=== PATIENT | female | born 1985 | race Caucasian/White ===

== ENCOUNTER 2020-01-13 06:56 | Inpatient (IN) | payer OTHER, SELFPAY ==
[2020-01-13] VITALS (80 sets, daily range): BP systolic 93–161; BP diastolic 54–97; PULSE 68–129; RESP 16; TEMP 36.4–37.3; O2SAT 93–100; BMI 24.7
[2020-01-13] MEDS: Lactated Ringers 1,000 ML 50 ML IV (07:25)
[2020-01-13 07:40] LABS: Absolute Lymphocyte Count 1.26 X10^3/uL (0.83-4.51); Absolute Neutrophil Count 4.9 X10^3/uL (2.0-7.7); Basophil# 0.06 X10^3/uL; Basophil% 0.9 % (0-1); Eosinophil# 0.08 X10^3/uL; Eosinophils% 1.2 % (0-5); Hematocrit 37.3 % (37-47); Lymphocyte # 1.26 X10^3/ul (4.0); Lymphocyte % 18.7 % (19-41); Mean Corp Hgb Conc 32.2 g/dL (32-36); Mean Corpuscular Hgb 27.6 pg (27.0-32.0); Mean Corpuscular Volume 85.9 fL (81-99); Mean Platelet Vol. 11.8 fl (6.2-12.0); Monocyte# 0.43 X10^3/uL; Monocyte% 6.4 % (0-10); NRBC Flagged by Analyzer 0 % (0-5); Neutrophil # 4.87 X10^3/uL (2.7-7.7); Neutrophil % 72.4 % (47-70); Platelet Count 190 K/mm3 (150-450); RBC Distribution Width CV 14.9 % (11.6-14.6); RBC Distribution Width SD 46.6 fl (35.1-43.9); Red Blood Count 4.34 M/mm3 (4.2-5.4); White Blood Count 6.7 K/mm3 (4.4-11.0)
[2020-01-13] MEDS: Oxytocin 30 units/NS 500 ml 30 UNITS/500 ML IV.SOLN IV (08:09)
[2020-01-13 11:00] LABS: Chlamydia Trachomatis by PCR Negative (Negative); Neisserai gonorrhoeae by PCR Negative (Negative); Probe Check PASS; Sample Adequacy Control PASS; Specimen Processing Control PASS
[2020-01-13] MEDS: Lactated Ringers 500 ML 999 ML IV (14:35)
[2020-01-13] MEDS: fentaNYL-bupivacaine (epidural) 100 ML BAG EPIDURAL (15:52)
[2020-01-13] MEDS: Oxytocin 30 units/NS 500 ml 30 UNITS/500 ML IV.SOLN 167 UNITS IV (18:30)
--- NOTE | 2020-01-13 19:23 | PCM.HPOB.BLA ---
History and Physical Date of Admission: 01/13/20 Presenting for labor induction
--- NOTE | 2020-01-13 19:31 | PCM.OPRPT ---
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 Method of Induction: Pitocin, Amniotomy Medical Reason for Induction: Maternal Medical Condition: list: - see HPI Amniotic Membrane Rupture Type: Artificial Rupture of Membrane time: 1330 Amniotic Fluid Description: Clear Final ZION: 01/20/20 Final ZION Source: US <20 weeks Gestational age: 39 Weeks and 0 Days Date of Procedure: 01/13/20 Pre-Operative Diagnosis: 39 wk Iup Post-Operative Diagnosis: SAME, NUCHAL ARM Surgery/ Procedure Performed: Spontaneous Vaginal Delivery Type of Anesthesia: Epidural Presentation: JINA Placental Delivery Description: Spontaneous Placenta Disposition: [facility] Cord Vessel Description: 3 Vessels Cord Gases drawn per routine: ABG Cord Entanglement: None Drain: [place] to straight drain Estimated Blood Loss: 250ML Infant A gender: Male (1 minute): 8 (5 minute): 9 Episiotomy Description: None Laceration: Periurethral Extnsion/lac, 1st degree Medications given after delivery: IV Pitocin Complications: None
--- NOTE | 2020-01-13 19:35 | HP.PCM_ITS ---
- Problem List (1) Elderly multigravida Status: Acute (2) Habitual aborter Status: Chronic History Date of Admission: 01/13/20 Final ZION: 01/20/20 Final ZION Source: US <20 weeks Gestational age: 39 Weeks and 0 Days History of this : This is a 34 year-old, G [], P [], at 39 weeks gestational age. Allergies No Known Allergies Allergy (Verified 01/13/20 07:21) Home Medications: Home Medications Calcium Carbonate [Calcium] 600 mg PO DAILY 06/07/17 Vits [Prenatabs FA ] 1 tab PO DAILY 06/07/17 Ferrous Sulfate [Iron] 325 mg PO DAILY 01/13/20 Smoking Status: Never smoker Alcohol: None Number of Fetus(es): 1 NST - FHR Rate Baby A Variability:: Moderate Accelerations:: 15 x 15 Decelerations:: None FHR Category:: Category I Uterine Activity:: MILD CONTRACTIONS AFTER INITIATION OF PITOCIN History Past Pregnancies: Past Pregnancies Delivery Date Name GA/ Weeks Outcome Route Wt Sex Labor Length Anesthesia Delivery Location Provider FOB Expected Infant Delivery Method: Spontaneous Vaginal Number of Visits: 12 Review of Systems Constitutional: Denies: Chills, Fever, Weight Change HEENT: Denies: Head Aches, Sinus Congestion, Sinus Drainage Cardiovascular: Denies: Chest Pain, Palpitations Gastrointestinal: Denies: Abdominal Pain, Nausea, Vomiting Genitourinary: Denies: Dysuria Musculoskeletal: Denies: Joint Pain, Joint Tenderness Skin: Denies: Rash, Wounds Neurological: Denies: Numbness, Tingling, Focal weakness Psychiatric: Denies: Anxiety, Depression, Homicidal Ideations, Suicidal Ideations Physical Exam Vitals: Vital Signs Temp Pulse BP Pulse Ox 98.6 F 79 136/88 H 100 01/13/20 19:10 01/13/20 19:31 01/13/20 19:23 01/13/20 19:31 General: Alert, Oriented x3, Cooperative HEENT: Atraumatic, Normocephalic Cardiovascular: Regular rate Lungs: Clear to auscultation Neurological: Cranial nerves II-XII grossly intact TALENT SOURCER: Normal external genitalia. Negative for: Vulvar lesions Estimated gestational size: Appropriate for gestational size Presentation: Cephalic Cervix Dilation (cm): 2 Station: -1 Effacement (%): 70 Assessment/Plan All Active Problems Elderly multigravida (Acute) (Acute) This is a 34 year-old, G [], P [], at 39 weeks gestational age.
[2020-01-13] MEDS: Ibuprofen 600 MG Tablet PO (20:53)
[2020-01-14] VITALS (14 sets, daily range): BP systolic 112–135; BP diastolic 61–77; PULSE 68–76; RESP 14–16; TEMP 36.5–37
--- NOTE | 2020-01-14 03:12 | NURSING ---
This RN assuming care at this time.
[2020-01-14 04:09] LABS: Hematocrit 35.8 % (37-47); Hemoglobin 11.5 g/dL (12.0-15.0); Mean Corp Hgb Conc 32.1 g/dL (32-36); Mean Corpuscular Volume 87.1 fL (81-99); Mean Platelet Vol. 11.1 fl (6.2-12.0); Platelet Count 175 K/mm3 (150-450); RBC Distribution Width CV 15.2 % (11.6-14.6); RBC Distribution Width SD 48.2 fl (35.1-43.9); Red Blood Count 4.11 M/mm3 (4.2-5.4)
[2020-01-14] MEDS: Ibuprofen 600 MG Tablet PO (05:43)
[2020-01-14] MEDS: Prenatal Vits Tablet 1 TABLET PO (10:11)
[2020-01-14] MEDS: Ferrous Sulfate 325 MG Tablet PO (10:11)
[2020-01-14] MEDS: Acetaminophen 325 MG Tablet PO (10:11)
--- NOTE | 2020-01-14 13:56 | PCM.PN.OB ---
Patient Problems: Active and Suspected Problems Elderly multigravida (Acute) Subjective: feels fine - Physical Exam Vitals/I&O's: Vital Signs Temp Pulse Resp BP Pulse Ox 98.1 F 69 14 117/75 97 01/14/20 13:21 01/14/20 13:22 01/14/20 12:00 01/14/20 13:22 01/13/20 23:32 Oxygen Delivery Method Room Air Weight: 73.936 kg Body Mass Index (BMI) 24.7 Intake and Output for Last 24 Hours 01/12/20 01/13/20 01/14/20 23:59 23:59 23:59 Intake Total 3690.99 / 3690.99 Output Total 1250 / 1250 1800 / 1800 Balance 2440.99 / 2440.99 -1800 / -1800 General: Alert, Oriented x3, Cooperative HEENT: Atraumatic Lungs: Clear to auscultation Cardiovascular: Regular rate Abdomen: Soft, Non Tender - uterus firm at 1cm below umb Extremities: No edema, No Calf Tenderness Psych/Mental Status: Normal Affect, Alert and oriented to time, place, person, mood and affect Laboratory Results 01/14/20 04:00: WBC 11.0, RBC 4.11 L, Hgb 11.5 L, Hct 35.8 L, MCV 87.1, MCH 28.0, MCHC 32.1, RDW Std Deviation 48.2 H, RDW Coeff of Shonda 15.2 H, Plt Count 175, MPV 11.1 Current Medications Acetaminophen (Tylenol) 325 - 650 mg PO Q4H PRN PRN PRN Reason: Pain Score 1-3/10 Last Admin: 01/14/20 10:11 Dose: 650 mg Documented by: Citric Acid/Sodium Citrate (Bicitra) 30 ml PO X1 PRN PRN Reason: Section Dibucaine (Dibucaine) 1 applic TOPICAL TID PRN PRN; Protocol PRN Reason: Discomfort Ferrous Sulfate (Ferrous Sulfate) 325 mg PO DAILYCM MILTON Last Admin: 01/14/20 10:11 Dose: 325 mg Documented by: Hydrocortisone (Hytone) 1 applic TOPICAL TID PRN PRN; Protocol PRN Reason: Discomfort Lactated Ringer's () 500 mls @ 999 mls/hr IV .Q31M PRN PRN Reason: Epidural Last Infusion: 01/13/20 16:05 Dose: Infused Documented by: Ibuprofen (Motrin) 600 mg PO Q6H PRN PRN Last Admin: 01/14/20 05:43 Dose: 600 mg Documented by: Ondansetron HCl (Zofran) 4 mg IV Q4H PRN PRN PRN Reason: NAUSEA Multivit/Folic Acid/Iron (Prenatabs Fa) 1 tablet PO DAILY MILTON Last Admin: 01/14/20 10:11 Dose: 1 tablet Documented by: Senna/Docusate Sodium (Senokot-S, Ibis-Colace) 1 - 2 tablet PO DAILY PRN PRN PRN Reason: Constipation Simethicone (Mylicon) 80 mg PO PCHS PRN PRN Reason: Indigestion/Stomach pain Medical Necessity - Tobacco Use Smoking Status: Never smoker Assessment/Plan All Active Problems Elderly multigravida (Acute) (Acute) Post ppartum day 1 after macrosomic male.
--- NOTE | 2020-01-14 13:59 | DCINST_ITS ---
Discharge Activity: May Not Drive Return to work on:: 03/03/20 May shower in (days): 0 May resume sexual activity in: 6-8 weeks Additional Activity Instructions:: No lifting any more than baby's weight Call your doctor if you observe: Fever of 101 or Higher, Inability to urinate, Using more than one pad per hour Additional Instructions: If you experience any of the following, contact your healthcare provider. * Bleeding that soaks a pad every hour for 2 hours * Fever 100.4 or higher * Unrelieved incision or abdominal pain * Swelling, redness, discharge or bleeding from your incision or episiotomy site * Your incision begins to separate * Problems urinating (including inability to urinate or burning while urinating). * Visual changes * Severe headache * Flu-like symptoms * Pain or redness in one of both of your breasts * Pain, warmth, tenderness or swelling in your legs, especially the calf area * Frequent nausea and vomiting * Symptoms of depression or anxiety If you experience any of the following, call 911 or go to the nearest Emergency Room. * Chest pain * Problems breathing * Seizure activity * Partial or complete paralysis of a body part, slurred speech, weakness or drooping of the face, or a sudden inability to walk or hold your balance Allergies/Adverse Reactions: Allergies No Known Allergies Allergy (Verified 01/13/20 07:21) Medications to take at Discharge Calcium Carbonate [Calcium] 600 mg PO DAILY 06/07/17 Vits [Prenatabs FA ] 1 tab PO DAILY 06/07/17 Ferrous Sulfate [Iron] 325 mg PO DAILY 01/13/20 Please Follow Up With: Annie Cheung MD When: 6wks Test Results: Test results from this visit will be discussed in further detail at your follow- up appointment, if applicable.
--- NOTE | 2020-01-14 13:59 | PCM.DCVAG ---
Discharge Activity: May Not Drive Return to work on:: 03/03/20 May shower in (days): 0 May resume sexual activity in: 6-8 weeks Additional Activity Instructions:: No lifting any more than baby's weight Call your doctor if you observe: Fever of 101 or Higher, Inability to urinate, Using more than one pad per hour Additional Instructions: If you experience any of the following, contact your healthcare provider. Bleeding that soaks a pad every hour for 2 hours Fever 100.4 or higher Unrelieved incision or abdominal pain Swelling, redness, discharge or bleeding from your incision or episiotomy site Your incision begins to separate Problems urinating (including inability to urinate or burning while urinating). Visual changes Severe headache Flu-like symptoms Pain or redness in one of both of your breasts Pain, warmth, tenderness or swelling in your legs, especially the calf area Frequent nausea and vomiting Symptoms of depression or anxiety If you experience any of the following, call 911 or go to the nearest Emergency Room. Chest pain Problems breathing Seizure activity Partial or complete paralysis of a body part, slurred speech, weakness or drooping of the face, or a sudden inability to walk or hold your balance Allergies/Adverse Reactions: Allergies No Known Allergies Allergy (Verified 01/13/20 07:21) Medications to take at Discharge Calcium Carbonate [Calcium] 600 mg PO DAILY 06/07/17 Vits [Prenatabs FA ] 1 tab PO DAILY 06/07/17 Ferrous Sulfate [Iron] 325 mg PO DAILY 01/13/20 Please Follow Up With: Annie Cheung MD When: 6wks Test Results: Test results from this visit will be discussed in further detail at your follow-up appointment, if applicable.
--- NOTE | 2020-01-14 14:03 | DS.PCM_ITS ---
Discharge Summary Date of Admission: 01/13/20 Date of Discharge: 01/14/20 Summary: Term IUP Elderly multigravida Multi-coagulation defects Hx infertility Macrosomic s/p Spontaneous vaginal delivery RH pos, Rubella immune Post delivery Hb = 11.5 Outcome; Male 9lb 3oz with Apgars of 8&9 Complications - none F/U in office in 6 wks. Patient Problems: Active and Suspected Problems Elderly multigravida (Acute) - Physical Exam Vitals/I&O's: Vital Signs Temp Pulse Resp BP Pulse Ox 98.1 F 69 14 117/75 97 01/14/20 13:21 01/14/20 13:22 01/14/20 12:00 01/14/20 13:22 01/13/20 23:32 Oxygen Delivery Method Room Air Weight: 73.936 kg Body Mass Index (BMI) 24.7 Intake and Output for Last 24 Hours 01/12/20 01/13/20 01/14/20 23:59 23:59 23:59 Intake Total 3690.99 / 3690.99 Output Total 1250 / 1250 1800 / 1800 Balance 2440.99 / 2440.99 -1800 / -1800 Laboratory Results 01/14/20 04:00: WBC 11.0, RBC 4.11 L, Hgb 11.5 L, Hct 35.8 L, MCV 87.1, MCH 28.0, MCHC 32.1, RDW Std Deviation 48.2 H, RDW Coeff of Shonda 15.2 H, Plt Count 175, MPV 11.1 Current Medications Acetaminophen (Tylenol) 325 - 650 mg PO Q4H PRN PRN PRN Reason: Pain Score 1-3/10 Last Admin: 01/14/20 10:11 Dose: 650 mg Documented by: Citric Acid/Sodium Citrate (Bicitra) 30 ml PO X1 PRN PRN Reason: Section Dibucaine (Dibucaine) 1 applic TOPICAL TID PRN PRN; Protocol PRN Reason: Discomfort Ferrous Sulfate (Ferrous Sulfate) 325 mg PO DAILYCM MILTON Last Admin: 01/14/20 10:11 Dose: 325 mg Documented by: Hydrocortisone (Hytone) 1 applic TOPICAL TID PRN PRN; Protocol PRN Reason: Discomfort Lactated Ringer's () 500 mls @ 999 mls/hr IV .Q31M PRN PRN Reason: Epidural Last Infusion: 01/13/20 16:05 Dose: Infused Documented by: Ibuprofen (Motrin) 600 mg PO Q6H PRN PRN Last Admin: 01/14/20 05:43 Dose: 600 mg Documented by: Ondansetron HCl (Zofran) 4 mg IV Q4H PRN PRN PRN Reason: NAUSEA Multivit/Folic Acid/Iron (Prenatabs Fa) 1 tablet PO DAILY [facility] Last Admin: 01/14/20 10:11 Dose: 1 tablet Documented by: Senna/Docusate Sodium (Senokot-S, Ibis-Colace) 1 - 2 tablet PO DAILY PRN PRN PRN Reason: Constipation Simethicone (Mylicon) 80 mg PO PCHS PRN PRN Reason: Indigestion/Stomach pain
[2020-01-14] MEDS: Diphth,Pertuss(Acell),Tet Vac 0.5 ML Vial IM (16:33)
== END 2020-01-14 20:50 | disposition home or self-care (01) | DRG 806 ==
PROVIDERS: Admitting Provider Obstetrics & Gynecology Gynecology; Visit Provider Obstetrics & Gynecology Gynecology
DX: O36.63X0 Maternal care for excessive fetal growth, third trimester, not applicable or unspecified (principal); O99.12 Other diseases of the blood and blood-forming organs and certain disorders involving the immune mechanism complicating childbirth; D68.8 Other specified coagulation defects; O26.23 Pregnancy care for patient with recurrent pregnancy loss, third trimester; O69.82X0 Labor and delivery complicated by other cord entanglement, without compression, not applicable or unspecified; O71.82 Other specified trauma to perineum and vulva; Z37.0 Single live birth; Z3A.39 39 weeks gestation of pregnancy
CPT/HCPCS: 59025; 59050; 85025; 85027; 86850; 86900; 86901; 87491; 87591; 90715; J7120; J0290

== ENCOUNTER → 2020-03-21 11:42 | Outpatient (CLI) | payer OTHER, SELFPAY ==
[2020-01-13 07:43] VITALS: BMI 24.7
--- NOTE | 2020-03-21 11:46 | BI_ITS ---
MAMMOGRAPHY - BILATERAL SCREENING 3-D TOMOSYNTHESIS REASON FOR EXAM: Female, 35 years old. BASELINE,FM HX MOTHER 50''S, PAT AUNT 40''S, PT GAVE 2 MTHS AGO AND NURSED FOR FIRST 2 WEEKS, RT MOLE MARKED PERTINENT HISTORY: No significant family history. TECHNIQUE: 2-D mammograms and 3-D Tomosynthesis of the breast (s) were performed. CAD was performed. COMPARISON: None. Baseline examination. FINDINGS: The breast composition is heterogeneously dense that can obscure small breast masses. Scattered benign calcifications are seen. No dense spiculated masses or suspicious microcalcifications are identified. No architectural distortion is identified. There is no skin thickening or retraction. BI/SCREEN MAMM (CAD) W/LUCIA BILAT IMPRESSION: No mammographic signs of malignancy. Routine yearly mammograms recommended. ASSESSMENT CATEGORY: BIRADS Category 2: Benign. A letter regarding these results will be sent to the patient by the facility within 30 days. FOLLOW UP RECOMMENDATION: Yearly follow up mammogram recommended. (A) Approximately 10% of breast cancers are not detected by mammography. A normal mammogram should not delay biopsy of a clinically suspicious abnormality. Electronically Signed: Aung Lorenzo MD at 13:00 EDT , Service support ,
== END ==
PROVIDERS: PCP Nurse Practitioner Primary Care; Referring Provider Obstetrics & Gynecology Gynecology; Visit Provider Obstetrics & Gynecology Gynecology
DX: Z12.31 Encounter for screening mammogram for malignant neoplasm of breast (principal); Z80.3 Family history of malignant neoplasm of breast
CPT/HCPCS: 77063; 77067

== ENCOUNTER → 2021-03-24 08:26 | Outpatient (CLI) | payer OTHER, SELFPAY ==
[2020-01-13 07:43] VITALS: BMI 24.7
--- NOTE | 2021-03-24 08:31 | BI_ITS ---
MAMMOGRAPHY - BILATERAL SCREENING REASON FOR EXAM: Female, 36 years old. Routine annual screening examination. PERTINENT HISTORY: Mother with breast cancer. Aunts with breast cancer. TECHNIQUE: Digital bilateral breast lucia (3D mammographic acquisition) in the CC and MLO projections. 2-D mediolateral oblique (MLO) and craniocaudad (CC) views of both breasts were obtained. CAD: Full Field Digital Mammography with Computer Added Detection was performed. COMPARISON: Comparison is made with prior study dated 03/21/2020. FINDINGS: Breast Composition: The breasts are extremely dense, which lowers the sensitivity of mammography. There are no dominant masses or suspicious calcifications. No other significant abnormalities are identified. There has been no significant change since the prior study. BI/SCRN MAMM (CAD)W/LUCIA BILAT IMPRESSION: Stable bilateral screening mammogram. Yearly follow-up mammogram recommended. (A) ASSESSMENT CATEGORY: BIRADS Category 1: Negative. A letter regarding these results will be sent to the patient by the facility within 30 days. Approximately 10% of breast cancers are not detected by mammography. A normal mammogram should not delay biopsy of a clinically suspicious abnormality. [id number] Electronically Signed: Humza Childress MD at 9:44 EDT , Service support ,
== END ==
PROVIDERS: PCP Nurse Practitioner Primary Care; Referring Provider Obstetrics & Gynecology Reproductive Endocrinology; Visit Provider Obstetrics & Gynecology Reproductive Endocrinology
DX: Z12.31 Encounter for screening mammogram for malignant neoplasm of breast (principal); Z80.3 Family history of malignant neoplasm of breast
CPT/HCPCS: 77063; 77067

== ENCOUNTER → 2022-03-30 | Outpatient (CLI) | payer OTHER, SELFPAY ==
--- NOTE | 2022-03-30 08:47 | BI_ITS ---
MAMMOGRAPHY - BILATERAL SCREENING REASON FOR EXAM: Female, 37 years old. Routine annual screening examination. PERTINENT HISTORY: Mother with breast cancer. Aunts with breast cancer. TECHNIQUE: Digital bilateral breast lucia (3D mammographic acquisition) in the CC and MLO projections. 2-D mediolateral oblique (MLO) and craniocaudad (CC) views of both breasts were obtained. CAD: Full Field Digital Mammography with Computer Added Detection was performed. COMPARISON: Comparison is made with prior study dated 03/24/2021 and 03/21/2020. FINDINGS: Breast Composition: The breasts are extremely dense, which lowers the sensitivity of mammography. There are no dominant masses or suspicious calcifications. No other significant abnormalities are identified. There has been no significant change since the prior study. BI/SCRN MAMM (CAD)W/LUCIA BILAT IMPRESSION: Stable bilateral screening mammogram. Yearly follow-up mammogram recommended. (A) ASSESSMENT CATEGORY: BIRADS Category 1: Negative. A letter regarding these results will be sent to the patient by the facility within 30 days. Approximately 10% of breast cancers are not detected by mammography. A normal mammogram should not delay biopsy of a clinically suspicious abnormality. [id number] Electronically Signed: Humza Childress MD at 9:42 EDT ,
== END | disposition home or self-care (01) ==
PROVIDERS: PCP Nurse Practitioner Primary Care; Visit Provider Obstetrics & Gynecology Reproductive Endocrinology
DX: Z12.31 Encounter for screening mammogram for malignant neoplasm of breast (principal); Z80.3 Family history of malignant neoplasm of breast
CPT/HCPCS: 77063; 77067

== ENCOUNTER → 2023-04-11 | Outpatient (CLI) | payer OTHER, SELFPAY ==
--- NOTE | 2023-04-11 09:03 | BI_ITS ---
MAMMOGRAPHY - BILATERAL SCREENING 3-D TOMOSYNTHESIS REASON FOR EXAM: Female, 38 years old. Routine screening PERTINENT HISTORY: Mother and aunts with breast cancer.. TECHNIQUE: 2-D mammograms and 3-D Tomosynthesis of the breast (s) were performed. CAD was performed. COMPARISON: 03/30/2022 FINDINGS: The breast composition is heterogeneously dense that can obscure small breast masses. Scattered benign calcifications are seen. No dense spiculated masses or suspicious microcalcifications are identified. No architectural distortion is identified. There is no skin thickening or retraction. There has been no significant change since the prior study. BI/SCRN MAMM (CAD)W/LUCIA BILAT IMPRESSION: No mammographic signs of malignancy. Routine yearly mammograms recommended. ASSESSMENT CATEGORY: BIRADS Category 2: Benign. A letter regarding these results will be sent to the patient by the facility within 30 days. FOLLOW UP RECOMMENDATION: Yearly follow up mammogram recommended. (A) Approximately 10% of breast cancers are not detected by mammography. A normal mammogram should not delay biopsy of a clinically suspicious abnormality. Electronically Signed: Aung Lorenzo MD at 13:56 EDT ,
== END | disposition home or self-care (01) ==
LOC: OPBI 09:01
PROVIDERS: PCP Nurse Practitioner Primary Care; Referring Provider Obstetrics & Gynecology Reproductive Endocrinology; Visit Provider Obstetrics & Gynecology Reproductive Endocrinology
DX: Z12.31 Encounter for screening mammogram for malignant neoplasm of breast (principal); Z80.3 Family history of malignant neoplasm of breast
CPT/HCPCS: 77063; 77067

== ENCOUNTER 2024-01-05 08:19 | Inpatient (IN) | payer OTHER, SELFPAY ==
[2024-01-05] VITALS (25 sets, daily range): BP systolic 119–156; BP diastolic 58–83; PULSE 77–109; RESP 14–16; TEMP 36.8–37.1; O2SAT 92–100; BMI 24.3
[2024-01-05] MEDS: Lactated Ringers 1,000 ML 50 ML IV (09:15)
[2024-01-05] MEDS: Oxytocin 15 Units/NS 250ml 15 UNITS/250 ML IV.SOLN 2 UNITS IV (09:33)
[2024-01-05 09:35] LABS: Absolute Lymphocyte Count 1.26 X10^3/uL (0.83-4.51); Absolute Neutrophil Count 6.6 X10^3/uL (2.0-7.7); Basophil# 0.06 X10^3/uL; Basophil% 0.7 % (0-1); Eosinophils% 1.2 % (0-5); Hemoglobin 11.4 g/dL (12.0-15.0); Lymphocyte # 1.26 X10^3/ul (0.83-4.51); Lymphocyte % 14.6 % (19-41); Mean Corp Hgb Conc 32.6 g/dL (32-36); Mean Corpuscular Volume 89.1 fL (81-99); Mean Platelet Vol. 11.1 fl (6.2-12.0); Monocyte# 0.56 X10^3/uL; Monocyte% 6.5 % (0-10); NRBC Flagged by Analyzer 0 % (0-5); Neutrophil # 6.61 X10^3/uL (2.7-7.7); Neutrophil % 76.4 % (47-70); Platelet Count 222 K/mm3 (150-450); RBC Distribution Width CV 12.3 % (11.6-14.6); RBC Distribution Width SD 40.3 fl (35.1-43.9); Red Blood Count 3.93 M/mm3 (4.2-5.4); White Blood Count 8.6 K/mm3 (4.4-11.0)
[2024-01-05] MEDS: LACTATED RINGERS 500 ML 999 ML IV (10:52)
--- NOTE | 2024-01-05 10:54 | HP.PCM.OB_ITS ---
HPI - General General Date of Admission: 01/05/24 Date of Service: 01/05/24 Chief Complaint: induction HPI Narrative FORTUNATO ROY, is a 4 para 2-0-2-2 who presents at 39-1/7 weeks gestation with EDC of 01/11/2024 presents for induction of labor due to advanced maternal age. She has had some irregular contractions. She denies any vaginal bleeding or leaking of fluid. has been complicated to date by advanced maternal age, history of previous LGA delivery with a 9 pound 8 ounce fetus. Maternal Data Information Final ZION: 01/11/24 Gestational age: 39 6/7 [facility] Medical History (Updated 01/05/24 @ 10:[address] Manda Fagan MD) macrosomia Home Medications calcium carbonate 600 mg PO DAILY vitamin 06/07/17 [History Last Taken 01/03/24] vits,calcium no.78-iron fumarate-folic acid 29 mg-1 mg tablet (Prenatabs FA) 1 tab PO DAILY 06/07/17 [History Last Taken 01/05/24] ferrous sulfate 325 mg (65 mg iron) tablet 325 mg PO DAILY 01/13/20 [History Last Taken 10/27/23] cholecalciferol (vitamin D3) 50 mcg (2,000 unit) capsule (D3-2000) 2,000 unit PO BID fertility 01/05/24 [History Last Taken 01/04/24] magnesium 250 mg tablet 250 mg PO BID NA 01/05/24 [History Last Taken 01/04/24] Allergy/AdvReac Type Severity Reaction Status Date / Time No Known Allergies Allergy Verified 01/05/24 09:39 Social History Smoking Status: Never smoker History Elective abortions Hx Para 2 Spontaneous abortions Hx # Term Pregnancies Ectopic pregnancies Hx # Pregnancies Multiple births # of living children ROS Constitutional Constitutional: Denies fatigue, fever(s) or malaise Eyes Eyes: Denies change in vision ENT HEENT: Denies dizziness or headache(s) Cardiovascular Cardiovascular: Denies chest pain, dyspnea or lightheadedness Respiratory/Chest Respiratory/Chest: Denies cough or dyspnea Gastrointestinal Gastrointestinal: Denies change in bowel habits Genitourinary Genitourinary: Denies burning urination or genital lesions Integumentary Integumentary: Denies rash Neurologic Neurologic: Denies confusion, dizziness, headache(s), numbness or weakness Vital Signs Vital Signs Vital Signs: 01/05/24 08:52 01/05/24 08:52 01/05/24 09:40 Pulse Rate 86 Blood Pressure 134/75 H 127/76 H BP Systolic 134 127 BP Diastolic 75 76 01/05/24 09:40 Pulse Rate 84 Blood Pressure BP Systolic BP Diastolic Weight Weight: 72.575 kg Body Mass Index (BMI) 24.3 Physical Exam Const alert and no apparent distress General Appearance: cooperative HEENT normocephalic Resp normal respiratory effort Cardio regular rate GI soft to palpation GI Narrative: gravid, nontender, appropriate for gestational age Extremity no calf tenderness General Extremity: edema Skin no wounds Rashes: No rashes noted Psych activity/motor behavior normal Labs Labs Labs: Blood Type AB POSITIVE Antibody Screen NEGATIVE Hct 35.0 % (37-47) L Hgb 11.4 g/dL (12.0-15.0) L Syphilis Total Ab Pending Rhogam given: No Assessment & Plan (1) 39 weeks gestation of : (2) Elderly multigravida: (3) Supervision of other high risk pregnancies, third trimester: PLAN: Risk benefits and alternatives to induction of labor at 39+ gestational weeks of discussed with patient, her questions were answered to her satisfaction she desires to proceed. Estimated weight is less than 4500 g clinically and pelvis clinically adequate to expect vaginal delivery. Pitocin and AROM for induction of labor. May have routine pain control measures as needed.
[2024-01-05 11:09] LABS: Syphilis Antibodies Non-reactive
[2024-01-05] MEDS: fentaNYL-bupivacaine (epidural) 100 ML BAG EPIDURAL (11:29)
[2024-01-05] MEDS: Oxytocin 15 Units/NS 250ml 15 UNITS/250 ML IV.SOLN 83 UNITS IV (11:55)
[2024-01-05] MEDS: Lidocaine 1% (20 ml mdv) 20 ML Vial INFILT (11:56)
--- NOTE | 2024-01-05 12:09 | EX.PCM.OBRPT ---
Assessment & Plan (1) (spontaneous vaginal delivery): Maternal Data Information Final ZION: 01/11/24 Gestational age: 39 1/7 Vaginal Delivery Maternal Presentation Maternal Presentation: Medically Indicated Induction Type of Induction: Pitocin and Amniotomy Operative Information Date of Procedure: 01/05/24 Pre-Operative Diagnosis: advanced maternal age Post-Operative Diagnosis: same Surgery / Procedure Performed: Spontaneous Vaginal Delivery Type of Anesthesia: Epidural and Local with 1% Lidocaine (10 cc) Special Medications: none Drain: - (none) Estimated Blood Loss: 300 Time of Delivery: 11:50 Findings Description of Procedure: A vigorous male infant was delivered JINA over an intact perineum. The remainder the was delivered with maternal pushing and gentle traction only in less than 15 seconds. The Pitocin infusion was initiated for active management of the third stage. The cord was clamped and cut after cord pulsations ceased. The infant was attended to by the waiting nursing staff. The placenta was delivered spontaneously and intact. The cervix and vagina were intact. The first-degree vaginal laceration was repaired with 3-0 Vicryl repeat suture and was hemostatic. Sponge and needle counts were correct. A vaginal sweep was completed by me. Presentation: JINA Amniotic Membrane Rupture Type: Artificial Amniotic Fluid Description: Clear Placental Delivery Description: Spontaneous Placenta Disposition: [facility] Specimen(s) Removed: none Cord Vessel Description: 3 Vessels Cord Entanglement: None A Gender: Male (1 minute): 8 (5 minute): 9 Delayed Cord Clamping: Yes Post Vaginal Delivery Medications Given After Delivery: IV Pitocin Episiotomy Description: None Laceration: 1st degree Complication Complications: None
[2024-01-06 00:02] VITALS: BP 122/65; PULSE 75; PULSE 76; PULSE 84; RESP 16; TEMP 37.2; O2SAT 96
[2024-01-06 03:32] VITALS: BP 131/60; PULSE 62; RESP 16; TEMP 36.6; O2SAT 98
[2024-01-06 03:33] VITALS: BP 131/60; PULSE 63; O2SAT 99
--- NOTE | 2024-01-06 07:05 | PN.OBGYN_ITS ---
Subjective Subjective Feels good. No complaints. Breast feeding. Pain controlled. Lochia decreasing. Ambulating and voiding without difficulty Objective Data Objective Data Vital Signs: Vital Signs Temp Pulse Resp BP Pulse Ox O2 Del Method 97.8 F 63 16 131/60 H 99 Room Air 01/06/24 03:32 01/06/24 03:33 01/06/24 03:32 01/06/24 03:33 01/06/24 03:33 01/06/24 03:32 Oxygen Delivery Method Room Air Weight: 72.575 kg Body Mass Index (BMI) 24.3 Intake & Output: Intake and Output for Last 24 Hours 01/04/24 01/05/24 01/06/24 23:59 23:59 23:59 Intake Total 1431.26 / 1431.26 Output Total 2300 / 2300 Balance -868.74 / -868.74 Lab / Micro Data 01/05/24 09:15 Labs: Laboratory Results - last 24 hr 01/05/24 09:15: WBC 8.6, RBC 3.93 L, Hgb 11.4 L, Hct 35.0 L, MCV 89.1, MCH 29.0, MCHC 32.6, RDW Std Deviation 40.3, RDW Coeff of Shonda 12.3, Plt Count 222, MPV 11.1, Immature Gran % (Auto) 0.600, Neut % (Auto) 76.4 H, Lymph % (Auto) 14.6 L, [place] % (Auto) 6.5, Eos % (Auto) 1.2, Baso % (Auto) 0.7, Absolute Neuts (auto) 6.6, Absolute Lymphs (auto) 1.26, Nucleated RBC % 0, Syphilis Total Ab Non- reactive, Blood Type AB POSITIVE, Antibody Screen NEGATIVE Micro: Microbiology 01/05/24 09:10 Urine, Clean Catch Chlamydia trachomatis (PCR) - Final 01/05/24 09:10 Urine, Clean Catch Neisseria gonorrhoeae (PCR) - Final Physical Exam Const alert and no apparent distress Narrative: Fundus firm, below umbilicus. Assessment & Plan (1) 39 weeks gestation of : (2) (spontaneous vaginal delivery):
--- NOTE | 2024-01-06 07:09 | DS.PCM_ITS ---
Providers Date of Admission: 01/05/24 Date of Discharge: 01/06/24 Primary Care Physician: Jodie Mc, CANDYC Reason For Visit: VAGINAL DELIVERY Diagnosis Discharge Diagnosis (1) 39 weeks gestation of : Status: Acute Code(s): Z3A.39 - 39 weeks gestation of (2) (spontaneous vaginal delivery): Status: Acute Code(s): O80 - Encounter for full-term uncomplicated delivery Medications at Discharge Home Medications calcium carbonate 600 mg PO DAILY vitamin 06/07/17 vits,calcium no.78-iron fumarate-folic acid 29 mg-1 mg tablet (Prenatabs FA) 1 tab PO DAILY 06/07/17 ferrous sulfate 325 mg (65 mg iron) tablet 325 mg PO DAILY 01/13/20 cholecalciferol (vitamin D3) 50 mcg (2,000 unit) capsule (D3-2000) 2,000 unit PO BID fertility 01/05/24 magnesium 250 mg tablet 250 mg PO BID NA 01/05/24 Hospital Course Operations None Procedures None Summary of Care Provided Minutes Spent on Discharge: 20 Hospital Course: Induction of labor at term. Pitocin and AROM. Quick progression to spontaneous vaginal delivery. Breast feeding . No complication Physical Exam Const alert and no apparent distress Narrative: Fundus firm, below umbilicus. Weight / BMI Weight Weight: 72.575 kg Body Mass Index (BMI) 24.3 ABG / Lab / Microbiology Data 01/05/24 09:15 Laboratory: Laboratory Results - last 24 hr 01/05/24 09:15: WBC 8.6, RBC 3.93 L, Hgb 11.4 L, Hct 35.0 L, MCV 89.1, MCH 29.0, MCHC 32.6, RDW Std Deviation 40.3, RDW Coeff of Shonda 12.3, Plt Count 222, MPV 11.1, Immature Gran % (Auto) 0.600, Neut % (Auto) 76.4 H, Lymph % (Auto) 14.6 L, [place] % (Auto) 6.5, Eos % (Auto) 1.2, Baso % (Auto) 0.7, Absolute Neuts (auto) 6.6, Absolute Lymphs (auto) 1.26, Nucleated RBC % 0, Syphilis Total Ab Non- reactive, Blood Type AB POSITIVE, Antibody Screen NEGATIVE Microbiology: Microbiology 01/05/24 09:10 Urine, Clean Catch Chlamydia trachomatis (PCR) - Final 01/05/24 09:10 Urine, Clean Catch Neisseria gonorrhoeae (PCR) - Final D/C Instructions May resume sexual activity in: 6 weeks Please Follow Up With: Manda Fagan MD When: Follow up with our office in 1-2 and 6 weeks or as needed. [phone] Meaningful Use Info Meaningful Use Diagnoses (Choose all that apply): None applicable Discharge Plan Admission Admit Date/Time: 01/05/24 08:19 Primary Reason for Your Visit: induction of labor Attending Provider: Manda Fagan Primary Care Provider: Jodie Mc NP Instructions Patient Instructions: After a Vaginal Discharge Orders/Prescriptions Prescriptions: Continued calcium carbonate 600 MG tablet 600 mg PO DAILY Rx Instructions: Prenatabs FA 1 TABLET tablet 1 tab PO DAILY ferrous sulfate 325 MG tablet 325 mg PO DAILY cholecalciferol (vitamin D3) [D3-2000] 50 mcg (2,000 unit) capsule 2,000 unit PO BID magnesium 250 mg tablet 250 mg PO BID Referrals / Follow Up: Jodie Mc NP, [employer] GRADER-C [Primary Care Provider] - Disposition Disposition (needs filled in before D/C Order can be placed): Home, Self Care
[2024-01-06 08:38] VITALS: BP 121/72; PULSE 71; O2SAT 98
[2024-01-06 08:48] VITALS: BP 121/72; PULSE 71; RESP 16; TEMP 36.4; O2SAT 98
[2024-01-06 14:46] VITALS: BP 121/72; PULSE 71; RESP 16; TEMP 36.4; O2SAT 98
--- NOTE | 2024-01-10 16:12 | NURSING ---
Follow up phone call performed-- pt. denies s+s of complications. Having a little bit of pressure in vaginal area, but no excessive swelling, pain, or bleeding/clots. Reports vaginal bleeding WNL. Has appt with OB tomorrow. going well. No questions or concerns.
== END 2024-01-06 14:50 | disposition home or self-care (01) | DRG 807 ==
PROVIDERS: Admitting Provider Obstetrics & Gynecology; PCP Nurse Practitioner Primary Care; Visit Provider Obstetrics & Gynecology
DX: O70.0 First degree perineal laceration during delivery (principal); Z37.0 Single live birth; Z3A.39 39 weeks gestation of pregnancy; Z87.59 Personal history of other complications of pregnancy, childbirth and the puerperium
CPT/HCPCS: 59025; 59050; 85025; 86780; 86850; 86900; 86901; 87491; 87591; 99221; J7120; G0378

== ENCOUNTER 2025-05-24 14:47 | Emergency (ER) | payer OTHER, SELFPAY ==
[2025-05-24 14:48] VITALS: BP 157/87; PULSE 80; RESP 18; TEMP 36.7; O2SAT 100
[2025-05-24 15:07] VITALS: O2SAT 100
--- NOTE | 2025-05-24 15:07 | RAD_ITS ---
PROCEDURE: CHEST PA AND LATERAL 05/24/2025 REASON FOR EXAM: CHEST PAIN TECHNIQUE: Procedure Code: RADCXR Modality: DX Procedure: CHEST PA AND LATERAL COMPARISON: None. FINDINGS: Lungs/Pleura: Clear. No pneumothorax or pleural effusion. Heart/Mediastinum: Normal in size. No vascular congestion. Bones/Soft tissues: Unremarkable. Electronic device projects over the anterior mid chest wall. RAD/Chest PA and Lateral IMPRESSION: No acute cardiopulmonary disease. Reading Location: [id number]
--- NOTE | 2025-05-24 15:07 | EKG12_ITS ---
Test Reason : PALP Blood Pressure : */* mmHG Vent. Rate : 73 BPM Atrial Rate : 73 BPM P-R Int : 152 ms QRS Dur : 108 ms QT Int : 372 ms P-R-T Axes : 50 9 31 degrees QTcB Int : 409 ms Normal sinus rhythm with sinus arrhythmia Incomplete right bundle branch block Borderline ECG Confirmed by Francis Vance ([id number]), image editor CYNTHIA WILLOUGHBY ([id number]) on 05/28/2025 9:57:20 AM Referred By: ES/ER Confirmed By: Francis Vance
--- NOTE | 2025-05-24 15:14 | ED.VIS.CHEST ---
HPI History of Present Illness Chief Complaint: Palpitations Informant: patient Onset/Context/Timing Onset: Days Activity at onset: gradual Timing: Intermittent Narrative Narrative: 40-year-old female history of mitral valve prolapse. No other cardiac disease. No history of DVT or PE or risk factors. No recent travel, surgery mobilization. States she has had recent elevated heart rate at times and palpitations. Currently is wearing a monitor and storage bin tender that she turns in the next few days but has not gotten the information off of that yet. Patient works out frequently. She has been doing creatine in the last 6 days to help maintain and build muscle. States she feels dehydrated and at times lightheaded. No chest pain. No hemoptysis. No leg pain or swelling. No significant weight change. No history of thyroid disease. Prior Similar Symptoms: No Recent Illness/Hospitalization: No CVD Risk Factors: Negative for Hypertension, Diabetes, Hypercholesterolemia or Family History 1' </=55 PE Risk Factors: Negative for Recent Travel/Surgery, Recent Immobilization, Prior DVT or PE or Cancer TAD Risk Factors: Negative for Marfan's Syndrome, Hypertension or Family History [facility] Medical History macrosomia Home Medications ?Medication ?Instructions ?Recorded ?Last Taken ?Type calcium carbonate 600 mg PO DAILY vitamin 06/07/17 01/03/24 History vits,calcium no.78-iron 1 tab PO DAILY 06/07/17 01/05/24 History fumarate-folic acid 29 mg-1 mg tablet (Prenatabs FA) ferrous sulfate 325 mg (65 mg 325 mg PO DAILY 01/13/20 10/27/23 History iron) tablet cholecalciferol (vitamin D3) 50 2,000 unit PO BID fertility 01/05/24 01/04/24 History mcg (2,000 unit) capsule (D3-2000) magnesium 250 mg tablet 250 mg PO BID NA 01/05/24 01/04/24 History Allergy/AdvReac Type Severity Reaction Status Date / Time No Known Allergies Allergy Verified 05/24/25 14:48 Social History Smoking Status: Never smoker ROS ROS ED ROS Narrative Palpitations. Lightheadedness. Constitutional Constitutional ED: Denies chills or fever(s) Eyes Eyes: Reports none ENT ENT ED: Denies ear pain Cardiovascular Cardiovascular: Reports palpitations and racing heartbeat; Denies chest pain Respiratory/Chest Respiratory/Chest: Denies dyspnea or dyspnea on exertion Gastrointestinal Gastrointestinal: Denies abdominal pain or constipation Genitourinary Genitourinary ED: Denies dysuria or hematuria Musculoskeletal Musculoskeletal: Denies arthralgias or back pain Integumentary Denies abscess Neurologic Neurologic: Denies headache(s) Psychiatric Psychiatric: Denies depression Endocrine Endocrinology: Denies cold intolerance Hematologic/Lymphatic Hematologic/Lymphatic: Denies easy bleeding, easy bruising or lymphadenopathy Allergic/Immunologic Allergic/Immunologic ED: Denies mouth swelling, tongue swelling or urticaria EXAM Physical Exam Narrative Exam Narrative: Well-appearing 40-year-old female. Vital signs are stable afebrile. Pulse ox 100% on room air. Heart rate 80. Sinus rhythm on the monitor. No distress. Patient's well fit. H EENT exam pupils round react to light. Moist mutes members. Neck nontender no JVD. No lymphadenopathy. No thyromegaly. Back nontender. Lungs clear to auscultation bilaterally. Heart regular rhythm rate about 80 no murmur. Chest wall and ribs nontender. Abdomen soft nontender. Moving all 4 extremities. Nontender no edema no cords. 5 of 5 steamfitter apprentice strength. Equal symmetrical radial pulses. Calves are nontender without edema or cords. Normal dorsi plantarflexion. Neurologically she is awake alert. Answering questions following commands. Const Vital Signs: 05/24/25 14:48 05/24/25 15:07 05/24/25 15:34 Temperature 98.1 F Temperature Source Oral Pulse Rate 80 Respiratory Rate 18 Respiratory Effort Normal Blood Pressure 157/87 H Blood Pressure Mean 110 Pulse Ox 100 100 Oxygen Delivery Method Room Air Room Air 05/24/25 15:47 05/24/25 16:00 Temperature Temperature Source Pulse Rate 73 68 Respiratory Rate 18 18 Respiratory Effort Blood Pressure 127/74 H 127/74 H Blood Pressure Mean 91 91 Pulse Ox 100 100 Oxygen Delivery Method Room Air Room Air Positive well nourished and well developed; Negative for obese, cachectic, contractures or unkempt General Appearance ED: well developed and NAD; Negative for unkempt, cachectic, contractures or pallor Nutritional Appearance: Negative for cachectic or obese HEENT Reports moist mucous membranes normocephalic and atraumatic Eyes PERRL and EOMs intact bilaterally General Eye ED: Negative for pale conjunctiva, scleral icterus or other Neck no lymphadenopathy, supple and no JVD General: Negative for tenderness Chest Wall inspection of chest normal and palpation of chest normal Resp normal respiratory effort and clear to auscultation bilaterally Effort and Inspection: Negative for respiratory distress Auscultation: Negative for rales, rhonchi, wheezes or diminished lung sounds Cardio regular rate, regular rhythm, S1 normal heart sound, S2 normal heart sound and no murmurs Peripheral Pulses: pulses 2+ throughout GI normal to inspection, nondistended, normoactive bowel sounds, soft to palpation, non-tender, non-distended and no masses Back/Spine no CVA tenderness and no thoracic nor lumbar tenderness Extremity normal to inspection General Extremety ED: Negative for edema, pulses abnormal or tenderness General Extremity: Negative for edema or pulses abnormal Neuro oriented x3 and CN's II-XII intact bilaterally Sensorium / Orientation: awake, alert, oriented to person, oriented to place and oriented to time Motor Exam: strength 5/5 throughout Psych mental status grossly normal Appearance: Negative for unkempt Skin no rashes or lesions noted and no wounds General Skin Exam: Negative for jaundice or pallor Rashes: No rashes noted Trauma: Negative for abrasion, laceration or puncture MDM MDM MDM Narrative Medical decision making narrative: 40-year-old female mitral valve prolapse history of palpitations. Benign normal exam of the heart rate 70-80. No murmur. Cardiac workup will be performed. With her thyroid test. Repeat exams the last one at 4:27 PM clinically looks well we went over her test results her tests are benign. Her exam is unremarkable. She be discharged home with outpatient follow-up. She is currently wearing a monitor and storage bin tender they are going to follow that up next week. History & Record Review Additional record(s) reviewed:: Prior inpatient record, Prior outpatient record, Prior ED visit and Prior labs Lab Data Attestation: I reviewed the patient's lab results. Lab results narrative: CBC shows a white count of 6. H&H 13 and 39. Platelets 247. Electrolytes show sodium 139. Gap 11. BUN/creatinine 22 and 0.7. Glucose 102. Troponin less than 6. TSH is normal at 1.96 Labs: Laboratory Results - last 24 hr 05/24/25 15:15 WBC 6.2 RBC 4.32 Hgb 13.4 Hct 39.4 MCV 91.2 MCH 31.0 MCHC 34.0 RDW Std Deviation 41.3 RDW Coeff of Shonda 12.4 Plt Count 247 MPV 10.0 Immature Gran % (Auto) 0.200 Neut % (Auto) 66.7 Lymph % (Auto) 22.9 [place] % (Auto) 6.8 Eos % (Auto) 2.1 Baso % (Auto) 1.3 H Absolute Neuts (auto) 4.1 Absolute Lymphs (auto) 1.41 Nucleated RBC % 0 Sodium 139 Potassium 4.0 Chloride 101 Carbon Dioxide 27.1 Anion Gap 11 BUN 22 H Creatinine 0.76 Estim Creat Clear Calc 92.08 Est GFR (MDRD) Non-Af 101 BUN/Creatinine Ratio 29.4 H Glucose 102 H Calcium 9.5 Troponin T High Sens < 6 TSH 1.960 Radiography Chest X-Ray - ED: 2 View, Read by ED Physician, Normal, Heart, Lungs, Mediastinum, Bony Structures, No Acute Disease and Cardiomegaly Diagnostic Testing: Clinical Impression(s) from Imaging Studies Chest X-Ray 05/24/25 15:07 IMPRESSION: No acute cardiopulmonary disease. Reading Location: [facility] Chest x-ray, 2 views, AP and lateral, interpreted by myself shows normal cardiac silhouette. Normal any sign. Normal lung french. No pneumonia. No effusions. No cardiomegaly. She does have monitor and storage bin tender on which is seen on the film. Normal chest x-ray. Rhythm Strip Rhythm Strip: Sinus Rhythm Rate: 73 Ectopy: None EKG Initial EKG: Attestation: I personally reviewed and interpreted this EKG as follows: Interpretation: Sinus Rhythm and No Acute Injury Pattern Comments: Normal sinus rhythm rate of 73 no acute signs of ID or ischemia. Incomplete right bundle branch block. Discharge Plan Triage Chief Complaint: Palpitations ED Provider: Samson Lancaster Dx/Rx/DC Orders Clinical Impression: Heart palpitations Instructions: ED Heart Palpitations Prescriptions: No Action calcium carbonate 600 MG tablet 600 mg PO DAILY Rx Instructions: Prenatabs FA 1 TABLET tablet 1 tab PO DAILY ferrous sulfate 325 MG tablet 325 mg PO DAILY cholecalciferol (vitamin D3) [D3-2000] 50 mcg (2,000 unit) capsule 2,000 unit PO BID magnesium 250 mg tablet 250 mg PO BID Primary Care Provider: Jodie Mc NP Referrals: Jodie Mc NP, M[employer] MECHANIC-C [Primary Care Provider] - As soon as possible Activity Restrictions/Additional Instructions: Follow-up with your primary care provider. Today your EKG, chest x-ray and your labs were all unremarkable. Follow-up with them to have your monitor and storage bin tender evaluated to see if they saw anything on it. Print Language: Greek Disposition Disposition: Home, Self Care
[2025-05-24 15:21] LABS: Hematocrit 39.4 % (37-47); Hemoglobin 13.4 g/dL (12.0-15.0); Immature Granulocytes Count 0.010 X10^3/uL (0.0-0.0); Mean Corp Hgb Conc 34.0 g/dL (32-36); Mean Corpuscular Volume 91.2 fL (81-99); Mean Platelet Vol. 10.0 fl (6.2-12.0); NRBC Flagged by Analyzer 0 % (0-5); Platelet Count 247 K/mm3 (150-450); RBC Distribution Width CV 12.4 % (11.6-14.6); RBC Distribution Width SD 41.3 fl (35.1-43.9); Red Blood Count 4.32 M/mm3 (4.2-5.4); White Blood Count 6.2 K/mm3 (4.4-11.0)
[2025-05-24 15:41] LABS: Anion Gap 11 (5-15); BUN 22 mg/dL (4-19); BUN/Creat Ratio 29.4 RATIO (10-20); Calcium,Total 9.5 mg/dL (7.6-11.0); Carbon Dioxide 27.1 mmol/L (21.0-32.0); Chloride 101 mmol/L (98-108); Estimated Creatinine Clearance 92.08 ml/min (50-250); Glucose 102 mg/dL (70-99); Potassium 4.0 mmol/L (3.3-5.1); Troponin T High Sensitivity < 6 ng/L (<=14)
[2025-05-24 15:47] VITALS: BP 127/74; PULSE 73; RESP 18; O2SAT 100
[2025-05-24 16:00] VITALS: BP 127/74; PULSE 68; RESP 18; O2SAT 100
[2025-05-24 17:00] VITALS: BP 112/75; PULSE 87; RESP 12; O2SAT 100
[2025-05-24 17:04] VITALS: BP 112/75; PULSE 87; RESP 12; TEMP 36.7; O2SAT 100
== END 2025-05-24 17:07 | disposition home or self-care (01) ==
PROVIDERS: Emergency Provider Emergency Medicine; PCP Nurse Practitioner Primary Care; Visit Provider Emergency Medicine
DX: R00.2 Palpitations (principal)
CPT/HCPCS: 71046; 80048; 84443; 84484; 85025; 93005; 99285; A4216